=== PATIENT | female | born 1995 | race Caucasian/White ===

== ENCOUNTER 2022-04-05 10:56 | Emergency (ER) | payer OTHER, BC, SELFPAY ==
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
[2022-04-05 11:10] VITALS: BP 109/86; PULSE 114; RESP 20; TEMP 36.3; O2SAT 95
[2022-04-05 11:39] VITALS: BP 117/77; PULSE 68; RESP 12; O2SAT 100
[2022-04-05 12:35] VITALS: BP 123/88; PULSE 65; RESP 12; O2SAT 100
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
[2022-04-05] MEDS: SULFAMETHOXAZOLE/TRIMETHOPRIM 800/160 MG DS TABLET 1 TAB PO (14:47)
== END 2022-04-05 14:45 | disposition home or self-care (01) ==
PROVIDERS: Emergency Provider Emergency Medicine
DX: S01.421A Laceration with foreign body of right cheek and temporomandibular area, initial encounter (principal); V49.40XA Driver injured in collision with unspecified motor vehicles in traffic accident, initial encounter
CPT/HCPCS: 12011; 70486; 99284; A9270